=== PATIENT | male | born 2000 | race African-American/Black ===

== ENCOUNTER 2022-02-08 21:14 | Emergency (ER) | payer OTHER, SELFPAY ==
[2022-02-08 21:24] VITALS: BP 116/62; PULSE 80; RESP 20; TEMP 37.6; O2SAT 98; BMI 22.1
--- NOTE | 2022-02-08 22:46 | ED_ITS ---
HPI - General Adult General Chief complaint: Fever Stated complaint: sore throat Time Seen by Provider: 02/08/22 21:15 Source: patient Mode of arrival: Ambulatory History of Present Illness HPI narrative: 21-year-old male nonsmoker with noncontributory medical history presents with his significant other and a chief complaint of sore throat that seems to be worsening over the course of the day. He is had subjective fever and difficulty swallowing but denies any cough, chest pain or shortness of breath. He is had no nausea, vomiting or diarrhea. He states he went to a clinic earlier today and had a strep test that was negative, given his presentation they started him on antibiotics any ways. Related Data Allergies Allergy/AdvReac Type Severity Reaction Status Date / Time No Known Drug Allergies Allergy Verified 02/09/22 00:08 Review of Systems Review of Systems Narrative: GENERAL: Denies chills, fatigue, malaise, fever, sweats. HEENT: D see HPI. RESPIRATORY: Denies dyspnea, cough, wheezing, hemoptysis, sputum. CARDIOVASCULAR: Denies chest pain, palpitations, orthopnea, edema, GASTROINTESTINAL: Denies nausea, vomiting, abdominal pain, diarrhea, constipation, melena. : Denies dysuria, frequency, incontinence, hematuria, urinary retention. MUSCULOSKELETAL: denies weakness, joint pain, or bony pain SKIN: Denies rash, skin lesions, or other NEUROLOGIC: Denies weakness, headache, numbness, change in speech, confusion, seizures, incoordination. PSYCHIATRIC: No concerning psychosocial issues. 12 point review of systems is negative except for those stated above Patient History Social History Smoking Status: Current every day smoker Smoking Status: Current every day smoker tobacco type: vaping Substance Use Type: does not use Exam Narrative Exam Narrative: GENERAL: [21] year old patient appears stated age. Well-developed patient, in mild distress. HEAD: Atraumatic. Normocephalic. EYES: Pupils equal round and reactive. Extraocular motions intact. No scleral icterus. No injection or drainage. ENT: Nose without bleeding, purulent drainage. Post pharyngeal erythema with bilateral exudate, airway patent, no mass effect or uvular pointing to suggest peritonsillar abscess NECK: Trachea midline. Non tender CARDIOVASCULAR: Regular rate and rhythm without murmurs, gallops, or rubs. RESPIRATORY: Clear to auscultation. Breath sounds equal bilaterally. No wheezes, rales, or rhonchi. GASTROINTESTINAL: Abdomen soft, non-tender, nondistended. EXTREMITIES: No edema or joint tenderness. BACK: Nontender without deformity or crepitance. No flank tenderness. NEURO: AOx3. SKIN: No rash or erythema of visible areas Initial Vital Signs Initial Vital Signs: Vital Signs Temperature 99.7 F H 02/08/22 21:24 Pulse Rate 80 02/08/22 21:24 Respiratory Rate 20 02/08/22 21:24 Blood Pressure 116/62 02/08/22 21:24 Pulse Oximetry 98 02/08/22 21:24 Oxygen Delivery Method 02/08/22 21:24 Course Orders Ordered: ED Orders 02/08/22 21:33 Covid-19 + FLU A/B + RSV - PCR Stat 02/08/22 23:57 Monotest Stat 02/09/22 00:05 Throat Culture Stat Discontinued Medications Dexamethasone (Dexamethasone 10 Mg/Ml Vial) 10 mg IV NOW ONE Stop: 02/08/22 23:58 Last Admin: 02/09/22 00:14 Dose: 10 mg Documented By: SHAILESH Sodium Chloride (Normal Saline 0.9%) 1,000 mls @ 1,000 mls/hr IV BOLUS ONE Stop: 02/09/22 00:56 Last Admin: 02/09/22 00:13 Dose: 1,000 mls/hr Documented By: SHAILESH Ketorolac Tromethamine (Ketorolac 30 Mg/Ml Vial) 15 mg IV NOW ONE Stop: 02/08/22 23:58 Last Admin: 02/09/22 00:13 Dose: 15 mg Documented By: SHAILESH Vital Signs Vital signs: Vital Signs - 8 hr 02/08/22 21:24 Temperature 99.7 F H Pulse Rate 80 Respiratory Rate 20 Blood Pressure 116/62 Pulse Oximetry 98 Oxygen Delivery Method Room Air Medical Decision Making Lab Data Labs: Lab Results 02/08/22 02/09/22 Range/Units 21:33 00:39 SARS-CoV-2 (PCR) Negative (Negative) Monoscreen Positive H (Negative) Influenza A (RT-PCR) Flu a negative (NEGATIVE) Influenza B (RT-PCR) Flu b negative (NEGATIVE) RSV (PCR) Negative (Negative) Point of Care Testing Rapid Strep A Negative Point of care testing: Point of Care Testing Rapid Strep A Negative Discharge Plan Departure Patient Disposition: Home Clinical Impression: Mononucleosis Instructions: DI for Mononucleosis-Adult Activity Restrictions/Additional Instructions: *You have been diagnosed with [sore throat due to mononucleosis. As we discussed your strep test and swab for COVID, RSV and flu were all negative. There is no specific treatment for mono and it is a self-limiting disease that should be treated with rest, fluids, Tylenol and Motrin.] *What to do: *Please continue to take your regular medications as directed. *Please follow up with your primary care provider in 2-3 days, call for an appointment. Let them know you were seen in the Emergency Department and that we ask that you be seen in follow up. We will electronically transmit a record of today's note if your PCP is in our system *If you do not have a primary care provider please contact the [facility] Resource line at [phone]. They will ask some questions about your medical history and help get you set up with a doctor in the community. *Return to Emergency Department if you should have any new, worsening or concerning symptoms, such as [fever greater than 101 F, shaking chills, worsening pain, persistent vomiting or other bothersome symptoms]
[2022-02-08 22:47] LABS: Influenza A - CEPHEID Flu A NEGATIVE (NEGATIVE); Influenza B - CEPHEID Flu B NEGATIVE (NEGATIVE); Respiratory Syncytial Virus Negative (Negative)
[2022-02-08 22:51] LABS: COVID-19 CEPHEID 4-PLEX PCR Negative (Negative)
[2022-02-09] MEDS: SODIUM CHLORIDE 0.9% 1,000 ML 1000 ML IV (00:13)
[2022-02-09] MEDS: KETOROLAC 30 MG/ML VIAL 15 MG IV (00:13)
[2022-02-09] MEDS: DEXAMETHASONE 10 MG/ML VIAL IV (00:14)
[2022-02-09 00:50] LABS: Monotest Positive (Negative)
[2022-02-09 02:02] VITALS: BP 128/74; PULSE 80; RESP 16; TEMP 36.8; O2SAT 100
== END 2022-02-09 02:04 | disposition home or self-care (01) ==
PROVIDERS: Emergency Provider Emergency Medicine
DX: B27.90 Infectious mononucleosis, unspecified without complication (principal); Z20.822 Contact with and (suspected) exposure to COVID-19
CPT/HCPCS: 0241U; 36415; 86318; 87070; 87147; 87880; 96361; 96374; 96375; 99284; J1100; J1885

== ENCOUNTER 2022-02-10 16:00 | Emergency (ER) | payer OTHER, SELFPAY ==
[2022-02-10 16:09] VITALS: BP 106/65; PULSE 80; RESP 32; TEMP 37.6; O2SAT 98; BMI 22.8
--- NOTE | 2022-02-10 16:17 | DI.RAD.S_ITS ---
PROCEDURE: XR CHEST 2V INDICATIONS: Pain with inspiration TECHNIQUE: 2 views of the chest were acquired. COMPARISON: None. FINDINGS: Surgical changes and devices: None. Lungs and pleura: Lungs are clear. No pleural effusions or pneumothorax. Mediastinum: Mediastinal contours are normal. Heart size is normal. Bones and chest wall: No suspicious bony abnormalities. Soft tissues appear unremarkable. IMPRESSION: No acute cardiopulmonary disease. Dictated by: Ruthy Sow M.D. on 02/10/2022 at 16:34 Approved by: Ruthy Sow M.D. on 02/10/2022 at 16:34
[2022-02-10 17:24] LABS: Add Manual Diff / Slide Review NO; Basophils Absolute Auto 0 /uL (0-100); Basophils Percent Auto 0.4 % (0-2); Eosinophils Absolute Auto 0 /uL (0-450); Eosinophils Percent Auto 0.5 % (2-4); Hematocrit 43.7 % (41-53); Hemoglobin 14.8 g/dL (13.5-17.5); Lymphocytes Absolute Auto 3800 /uL (1100-4500); Lymphocytes Percent Auto 48.8 % (25-40); Mean Corpuscular Hemoglobin 29.5 PG (26-34); Mean Corpuscular Volume 86.8 fL (80-100); Monocytes Absolute Auto 800 /uL (0-900); Monocytes Percent Auto 9.8 % (3-14); Neutrophils Absolute Auto 3100 /uL (1500-7000); Neutrophils Percent Auto 40.5 % (50-75); Platelet Count 188 X10^3/uL (150-400); Red Blood Cell Count 5.03 X10^6/uL (4.5-5.9); Red Cell Distribution Width 13.7 % (11.6-14.8); White Blood Cell Count 7.7 X10^3/uL (4.5-11.0)
[2022-02-10 17:32] LABS: Creatine Kinase 97 U/L (55-170)
[2022-02-10 17:36] LABS: C-Reactive Protein Quant 2.3 mg/dL (<1.0)
[2022-02-10 17:45] LABS: Troponin I < 0.012 ng/mL (0.01-0.034)
[2022-02-10 18:03] LABS: Erythrocyte Sedimentation Rate 13 MM/HR (0-15)
[2022-02-10 18:11] LABS: Alanine Aminotransferase 55 IU/L (<50); Alkaline Phosphatase 130 U/L (38-126); Aspartate Aminotransferase 33 IU/L (17-59); BUN Creatinine Ratio 10.6 (6-22); Bilirubin Total 0.5 mg/dL (0.2-1.3); Blood Urea Nitrogen 10 mg/dL (9-20); Carbon Dioxide 28 mmol/L (22-32); Chloride 100 mmol/L (98-107); Estimated Glomerular Filt Rate > 60 mL/min (>60); Globulin 4.1 g/dL (1.7-4.1); Glucose 88 mg/dL (70-100); HEMOLYSIS < 15 (0-50); Potassium 4.1 mmol/L (3.4-5.1); Sodium 139 mmol/L (137-145); Total Protein 8.1 g/dL (6.3-8.2)
[2022-02-10 18:24] VITALS: BP 103/64; PULSE 83; RESP 14; O2SAT 99
--- NOTE | 2022-02-10 18:24 | ED_ITS ---
HPI - SOB/Dyspnea General Chief Complaint: Shortness of Breath/Dyspnea Stated Complaint: Dx [place] t-2, dyspnea Time Seen by Provider: 02/10/22 17:52 Source: patient Mode of arrival: Ambulatory History of Present Illness HPI Narrative: Patient is a healthy 21-year-old male who presents with newly diagnosed mono as of yesterday. He started having sore throat about 3 days ago. He continues to have sore throat and some shortness of breath. He has some mild left upper quadrant pain as well so he was worried and came in. Continues to have low- grade fevers last dose of Motrin was earlier today. No nausea or vomiting. Generally does not feel well. He is tolerating fluids but not as much. Related Data Allergies Allergy/AdvReac Type Severity Reaction Status Date / Time No Known Drug Allergies Allergy Verified 02/10/22 16:09 Review of Systems Review of Systems Narrative: GENERAL: Denies chills, fatigue, malaise, fever, sweats, travel HEENT: See HPI RESPIRATORY: Denies dyspnea, cough, wheezing, hemoptysis, sputum. CARDIOVASCULAR: Denies chest pain, palpitations, orthopnea, edema GASTROINTESTINAL: See HPI : Denies dysuria, frequency, incontinence, hematuria, urinary retention, flank pain. MUSCULOSKELETAL: Denies weakness, joint pain, or bony pain SKIN: No rash, no erythema, no pruritus NEUROLOGIC: Denies weakness, dizziness, headache, numbness, change in speech, confusion PSYCHIATRIC: No concerning psychosocial issues. 12 point review of systems is negative except for those stated above and HPI Patient History Social History Smoking Status: Current every day smoker Smoking Status: Current every day smoker tobacco type: vaping Substance Use Type: does not use Exam Initial Vital Signs Initial Vital Signs: Vital Signs Temperature 99.7 F H 02/10/22 16:09 Pulse Rate 80 02/10/22 16:09 Respiratory Rate 32 H 02/10/22 16:09 Blood Pressure 106/65 02/10/22 16:09 Pulse Oximetry 98 02/10/22 16:09 Oxygen Delivery Method 02/10/22 16:09 GENERAL: Alert 21 male appears to not feel well but awake and alert and nonacute HEENT: Head atraumatic,EOMI, pupils reactive, face symmetric, moist mucous membranes PHARYNX: Erythematous enlarged tonsils with mild exudate minimal uvula swelling airway patent managing own secretions CARDIOVASCULAR: Regular rate and rhythm without murmurs, rubs or gallops. RESPIRATORY: Breath sounds equal bilaterally, no wheezes rales or rhonchi. ABDOMEN: Soft no splenomegaly no right upper quadrant pain negative Junior's nondistended EXTREMITIES: Normal range of motion, no clubbing or edema. Neurovascularly intact NEUROLOGICAL: Alert and oriented x4.Normal gait and speech. SKIN: Warm, dry, no laceration, no petechiae, no rashes or lesions. Course Orders Ordered: ED Orders 02/10/22 16:17 XR chest 2V Stat 02/10/22 16:25 EKG-12 Lead Stat 02/10/22 16:50 CMP [Comprehensive Metabolic Panel] Stat CRP [C-Reactive Protein Quant] Stat Complete Blood Count AUTO DIFF Stat Erythrocyte Sedimentation Rate Stat Troponin & CK Cardiac Panel Stat Discontinued Medications Sodium Chloride (Normal Saline 0.9%) 1,000 mls @ 1,000 mls/hr IV BOLUS ONE Stop: 02/10/22 19:38 Last Infusion: 02/10/22 19:47 Dose: 0 mls/hr Documented By: Admin: 02/10/22 18:51 Dose: 1,000 mls/hr Documented By: AT Ketorolac Tromethamine (Ketorolac 30 Mg/Ml Vial) 15 mg IV NOW ONE Stop: 02/10/22 18:31 Last Admin: 02/10/22 18:52 Dose: 15 mg Documented By: AT Vital Signs Vital signs: Vital Signs - 8 hr 02/10/22 18:24 02/10/22 20:02 Pulse Rate 83 82 Respiratory Rate 14 18 Blood Pressure 103/64 102/66 Pulse Oximetry 99 99 Oxygen Delivery Method Room Air Room Air MDM - SOB/Dyspnea Lab Data Result diagrams: 02/10/22 16:50 02/10/22 16:50 Labs: Lab Results 02/10/22 02/10/22 02/10/22 Range/Units 16:50 16:50 16:50 WBC 7.7 (4.5-11.0) X10^3/uL RBC 5.03 (4.5-5.9) X10^6/uL Hgb 14.8 (13.5-17.5) g/dL Hct 43.7 (41-53) % MCV 86.8 (80-100) fL MCH 29.5 (26-34) PG MCHC 34.0 (30-36) % RDW 13.7 (11.6-14.8) % Plt Count 188 (150-400) X10^3/uL Neut % (Auto) 40.5 L (50-75) % Lymph % (Auto) 48.8 H (25-40) % [place] % (Auto) 9.8 (3-14) % Eos % (Auto) 0.5 L (2-4) % Baso % (Auto) 0.4 (0-2) % Neut # (Auto) 3100 (9664-8664) /uL Lymph # (Auto) 3800 (4420-9330) /uL [place] # (Auto) 800 (0-900) /uL Eos # (Auto) 0 (0-450) /uL Baso # (Auto) 0 (0-100) /uL ESR 13 (0-15) MM/HR Sodium (137-145) mmol/L Potassium (3.4-5.1) mmol/L Chloride (98-107) mmol/L Carbon Dioxide (22-32) mmol/L BUN (9-20) mg/dL Creatinine (0.66-1.25) mg/dL Estimated GFR (>60) mL/min BUN/Creatinine Ratio (6-22) Glucose (70-100) mg/dL Calcium (8.4-10.2) mg/dL Total Bilirubin (0.2-1.3) mg/dL AST (17-59) IU/L ALT (<50) IU/L Alkaline Phosphatase (38-126) U/L Total Creatine Kinase 97 (55-170) U/L CK-MB (CK-2) TNP CK-MB (CK-2) Rel Index TNP Troponin I < 0.012 (0.01-0.034) ng/mL C-Reactive Protein (<1.0) mg/dL Total Protein (6.3-8.2) g/dL Albumin (3.5-5.0) g/dL Globulin (1.7-4.1) g/dL Albumin/Globulin Ratio (1.0-2.8) 02/10/22 02/10/22 Range/Units 16:50 16:50 WBC (4.5-11.0) X10^3/uL RBC (4.5-5.9) X10^6/uL Hgb (13.5-17.5) g/dL Hct (41-53) % MCV (80-100) fL MCH (26-34) PG MCHC (30-36) % RDW (11.6-14.8) % Plt Count (150-400) X10^3/uL Neut % (Auto) (50-75) % Lymph % (Auto) (25-40) % [place] % (Auto) (3-14) % Eos % (Auto) (2-4) % Baso % (Auto) (0-2) % Neut # (Auto) (7368-3619) /uL Lymph # (Auto) (6108-1796) /uL [place] # (Auto) (0-900) /uL Eos # (Auto) (0-450) /uL Baso # (Auto) (0-100) /uL ESR (0-15) MM/HR Sodium 139 (137-145) mmol/L Potassium 4.1 (3.4-5.1) mmol/L Chloride 100 (98-107) mmol/L Carbon Dioxide 28 (22-32) mmol/L BUN 10 (9-20) mg/dL Creatinine 0.94 (0.66-1.25) mg/dL Estimated GFR > 60 (>60) mL/min BUN/Creatinine Ratio 10.6 (6-22) Glucose 88 (70-100) mg/dL Calcium 9.0 (8.4-10.2) mg/dL Total Bilirubin 0.5 (0.2-1.3) mg/dL AST 33 (17-59) IU/L ALT 55 H (<50) IU/L Alkaline Phosphatase 130 H (38-126) U/L Total Creatine Kinase (55-170) U/L CK-MB (CK-2) CK-MB (CK-2) Rel Index Troponin I (0.01-0.034) ng/mL C-Reactive Protein 2.3 H (<1.0) mg/dL Total Protein 8.1 (6.3-8.2) g/dL Albumin 4.0 (3.5-5.0) g/dL Globulin 4.1 (1.7-4.1) g/dL Albumin/Globulin Ratio 1.0 (1.0-2.8) MDM Narrative Medical decision making narrative: Patient diagnosed with mono yesterday, airway is patent. Bedside ultrasound done by myself does not show any fluid in abdomen. Blood work is overall shanelle ssuring. He is given fluids and Toradol overall feeling better. Recommend no exercise and rest, supportive care only. Discharge Plan Departure Patient Disposition: Home Clinical Impression: Mononucleosis Instructions: DI for Mononucleosis-Adult Activity Restrictions/Additional Instructions: *You have been diagnosed with mononucleosis *What to do: You need to be cleared by the base before you participate in physical activity. He will feel tired and fatigued for number of weeks. *Continue to take medications as directed Ibuprofen 600 mg every 6 hours if needed for [id number] pain Recommend avoiding Tylenol at this time because mono can cause elevation in your liver enzyme *Follow up with your primary care provider in 2-3 days or call [phone] *Return to ER if you should have increasing fatigue increasing left upper quadrant pain, inability to swallow or any new, worsening or concerning symptoms Referrals: ProviderJessica [Primary Care Provider] - Stand Alone Forms: Work Release Note Visit Report Forms: Patient Portal/API
[2022-02-10] MEDS: SODIUM CHLORIDE 0.9% 1,000 ML 1000 ML IV (18:51)
[2022-02-10] MEDS: KETOROLAC 30 MG/ML VIAL 15 MG IV (18:52)
[2022-02-10 20:02] VITALS: BP 102/66; PULSE 82; RESP 18; O2SAT 99
== END 2022-02-10 20:03 | disposition home or self-care (01) ==
PROVIDERS: Emergency Medicine; Emergency Provider Emergency Medicine
DX: B27.90 Infectious mononucleosis, unspecified without complication (principal); R07.89 Other chest pain
CPT/HCPCS: 36415; 71046; 80053; 82550; 84484; 85025; 85651; 86140; 93005; 96361; 96374; 99284; J1885

== ENCOUNTER 2022-03-25 20:01 | Emergency (ER) | payer OTHER, SELFPAY ==
[2022-03-25 20:08] VITALS: BP 111/64; PULSE 70; RESP 18; TEMP 36.8; O2SAT 99; BMI 23.2
--- NOTE | 2022-03-25 20:14 | DI.RAD.S_ITS ---
PROCEDURE: XR CHEST 1V INDICATIONS: chest pain TECHNIQUE: One view of the chest was acquired. COMPARISON: [facility], CR, XR CHEST 2V, 02/10/2022, 16:24. FINDINGS: Surgical changes and devices: None. Lungs and pleura: Lungs are clear. No pleural effusions or pneumothorax. Mediastinum: Mediastinal contours appear normal. Heart size is normal. Bones and chest wall: No suspicious bony lesions. Overlying soft tissues appear unremarkable. IMPRESSION: Normal for age, source of current chest pain symptoms is not seen. Dictated by: Dario Wilde M.D. on 03/25/2022 at 21:33 Approved by: Dario Wilde M.D. on 03/25/2022 at 21:34
--- NOTE | 2022-03-25 20:40 | ED.CHESTPAIN ---
HPI - Chest Pain General Chief Complaint: Chest Pain Stated Complaint: tightness and pain in Lt side of chest Time Seen by Provider: 03/25/22 20:21 Source: patient Mode of arrival: Ambulatory Limitations: no limitations History of Present Illness HPI narrative: 21-year-old male former smoker with noncontributory medical history presents with his significant other and a chief complaint of at least 24 hours of gradually worsening and persistent left-sided burning chest pain. He states the pain is worse if he moves, sits up or takes a deep breath. He denies any radiation. He denies any associated symptoms such as dizziness, weakness or lightheadedness. He is had no runny nose, sore throat or cough. He denies any nausea, vomiting diarrhea. He denies any trauma or injury, recent travel, history of blood clot or known cancer. He denies any exertional symptoms or exercise intolerance Related Data Previous Rx's Medication Instructions Recorded ketorolac 10 mg tablet 10 mg PO Q6H PRN pain #14 tabs 03/26/22 Allergies Allergy/AdvReac Type Severity Reaction Status Date / Time No Known Drug Allergies Allergy Verified 02/10/22 16:09 Review of Systems Review of Systems Narrative: GENERAL: Denies chills, fatigue, malaise, fever, sweats. HEENT: Denies sinus pain, ear pain, sore throat, difficulty swallowing, dizziness. RESPIRATORY: Denies dyspnea, cough, wheezing, hemoptysis, sputum. CARDIOVASCULAR: See HPI GASTROINTESTINAL: Denies nausea, vomiting, abdominal pain, diarrhea, constipation, melena. : Denies dysuria, frequency, incontinence, hematuria, urinary retention. MUSCULOSKELETAL: denies weakness, joint pain, or bony pain SKIN: Denies rash, skin lesions, or other NEUROLOGIC: Denies weakness, headache, numbness, change in speech, confusion, seizures, incoordination. PSYCHIATRIC: No concerning psychosocial issues. 12 point review of systems is negative except for those stated above Patient History Social History Smoking Status: Former smoker Smoking Status: Former smoker tobacco type: vaping Substance Use Type: does not use Exam Narrative Exam Narrative: GENERAL: [21] year old patient appears stated age. Well-developed patient, in no obvious distress, resting comfortably HEAD: Atraumatic. Normocephalic. EYES: Pupils equal round and reactive. Extraocular motions intact. No scleral icterus. No injection or drainage. ENT: Nose without bleeding, purulent drainage. Throat without erythema, tonsillar hypertrophy or exudate. Airway patent. NECK: Trachea midline. Non tender CARDIOVASCULAR: Regular rate and rhythm without murmurs, gallops, or rubs. RESPIRATORY: Clear to auscultation. Breath sounds equal bilaterally. No wheezes, rales, or rhonchi. GASTROINTESTINAL: Abdomen soft, non-tender, nondistended. EXTREMITIES: No edema or joint tenderness. BACK: Nontender without deformity or crepitance. No flank tenderness. NEURO: AOx3. SKIN: No rash or erythema of visible areas Initial Vital Signs Initial Vital Signs: Vital Signs Temperature 98.2 F 03/25/22 20:08 Pulse Rate 70 03/25/22 20:08 Respiratory Rate 18 03/25/22 20:08 Blood Pressure 111/64 03/25/22 20:08 Pulse Oximetry 99 03/25/22 20:08 Oxygen Delivery Method 03/25/22 20:08 Scores HEART Score Heart Score history: Slightly Suspicious Heart Score EKG: Non-Specific repolarization disturbance Heart Score Age: < 45 years old Heart Score risk factors: No known risk factors Heart Score troponin: < or = to normal limit Heart Score Total: 1 Course Orders Ordered: Discontinued Medications Ketorolac Tromethamine (Ketorolac 30 Mg/Ml Vial) 15 mg IV NOW ONE Stop: 03/26/22 01:26 Last Admin: 03/26/22 01:30 Dose: 15 mg Documented By: HNG Vital Signs Vital signs: Vital Signs - 8 hr 03/25/22 20:08 03/25/22 22:20 Temperature 98.2 F Pulse Rate 70 70 Respiratory Rate 18 Blood Pressure 111/64 109/70 Pulse Oximetry 99 100 Oxygen Delivery Method Room Air Room Air MDM - Chest Pain Lab Data Result diagrams: 03/25/22 20:34 03/25/22 20:34 Labs: Lab Results 03/25/22 03/25/22 03/25/22 Range/Units 20:15 20:34 20:34 WBC 6.1 (4.5-11.0) X10^3/uL RBC 5.04 (4.5-5.9) X10^6/uL Hgb 14.7 (13.5-17.5) g/dL Hct 43.9 (41-53) % MCV 87.2 (80-100) fL MCH 29.2 (26-34) PG MCHC 33.5 (30-36) % RDW 14.2 (11.6-14.8) % Plt Count 201 (150-400) X10^3/uL Neut % (Auto) 57.7 (50-75) % Lymph % (Auto) 34.4 (25-40) % [place] % (Auto) 5.5 (3-14) % Eos % (Auto) 2.0 (2-4) % Baso % (Auto) 0.4 (0-2) % Neut # (Auto) 3500 (5325-6167) /uL Lymph # (Auto) 2100 (4044-4341) /uL [place] # (Auto) 300 (0-900) /uL Eos # (Auto) 100 (0-450) /uL Baso # (Auto) 0 (0-100) /uL ESR (0-15) MM/HR PT 13.1 H (10.1-12.7) SECONDS INR 1.1 (0.9-1.3) APTT 30 (26-36) SECONDS D-Dimer (<500) ng/ml Sodium (137-145) mmol/L Potassium (3.4-5.1) mmol/L Chloride (98-107) mmol/L Carbon Dioxide (22-32) mmol/L BUN (9-20) mg/dL Creatinine (0.66-1.25) mg/dL Estimated GFR (>60) mL/min BUN/Creatinine Ratio (6-22) Glucose (70-100) mg/dL Calcium (8.4-10.2) mg/dL Magnesium (1.6-2.3) mg/dL Total Bilirubin (0.2-1.3) mg/dL AST (17-59) IU/L ALT (<50) IU/L Alkaline Phosphatase (38-126) U/L Total Creatine Kinase (55-170) U/L CK-MB (CK-2) CK-MB (CK-2) Rel Index Troponin I (0.01-0.034) ng/mL C-Reactive Protein (<1.0) mg/dL Total Protein (6.3-8.2) g/dL Albumin (3.5-5.0) g/dL Globulin (1.7-4.1) g/dL Albumin/Globulin Ratio (1.0-2.8) Lipase (23-300) U/L SARS-CoV-2 (PCR) Negative (Negative) 03/25/22 03/25/22 03/25/22 Range/Units 20:34 20:34 20:34 WBC (4.5-11.0) X10^3/uL RBC (4.5-5.9) X10^6/uL Hgb (13.5-17.5) g/dL Hct (41-53) % MCV (80-100) fL MCH (26-34) PG MCHC (30-36) % RDW (11.6-14.8) % Plt Count (150-400) X10^3/uL Neut % (Auto) (50-75) % Lymph % (Auto) (25-40) % [place] % (Auto) (3-14) % Eos % (Auto) (2-4) % Baso % (Auto) (0-2) % Neut # (Auto) (8822-7316) /uL Lymph # (Auto) (8472-6888) /uL [place] # (Auto) (0-900) /uL Eos # (Auto) (0-450) /uL Baso # (Auto) (0-100) /uL ESR 9 (0-15) MM/HR PT (10.1-12.7) SECONDS INR (0.9-1.3) APTT (26-36) SECONDS D-Dimer 242 (<500) ng/ml Sodium 139 (137-145) mmol/L Potassium 4.0 (3.4-5.1) mmol/L Chloride 102 (98-107) mmol/L Carbon Dioxide 28 (22-32) mmol/L BUN 16 (9-20) mg/dL Creatinine 0.93 (0.66-1.25) mg/dL Estimated GFR > 60 (>60) mL/min BUN/Creatinine Ratio 17.2 (6-22) Glucose 119 H (70-100) mg/dL Calcium 8.9 (8.4-10.2) mg/dL Magnesium 1.8 (1.6-2.3) mg/dL Total Bilirubin 0.6 (0.2-1.3) mg/dL AST 23 (17-59) IU/L ALT 23 (<50) IU/L Alkaline Phosphatase 92 (38-126) U/L Total Creatine Kinase 94 (55-170) U/L CK-MB (CK-2) TNP CK-MB (CK-2) Rel Index TNP Troponin I < 0.012 (0.01-0.034) ng/mL C-Reactive Protein (<1.0) mg/dL Total Protein 8.0 (6.3-8.2) g/dL Albumin 4.2 (3.5-5.0) g/dL Globulin 3.8 (1.7-4.1) g/dL Albumin/Globulin Ratio 1.1 (1.0-2.8) Lipase 146 (23-300) U/L SARS-CoV-2 (PCR) (Negative) 03/25/22 Range/Units 20:34 WBC (4.5-11.0) X10^3/uL RBC (4.5-5.9) X10^6/uL Hgb (13.5-17.5) g/dL Hct (41-53) % MCV (80-100) fL MCH (26-34) PG MCHC (30-36) % RDW (11.6-14.8) % Plt Count (150-400) X10^3/uL Neut % (Auto) (50-75) % Lymph % (Auto) (25-40) % [place] % (Auto) (3-14) % Eos % (Auto) (2-4) % Baso % (Auto) (0-2) % Neut # (Auto) (8255-9393) /uL Lymph # (Auto) (5411-5202) /uL [place] # (Auto) (0-900) /uL Eos # (Auto) (0-450) /uL Baso # (Auto) (0-100) /uL ESR (0-15) MM/HR PT (10.1-12.7) SECONDS INR (0.9-1.3) APTT (26-36) SECONDS D-Dimer (<500) ng/ml Sodium (137-145) mmol/L Potassium (3.4-5.1) mmol/L Chloride (98-107) mmol/L Carbon Dioxide (22-32) mmol/L BUN (9-20) mg/dL Creatinine (0.66-1.25) mg/dL Estimated GFR (>60) mL/min BUN/Creatinine Ratio (6-22) Glucose (70-100) mg/dL Calcium (8.4-10.2) mg/dL Magnesium (1.6-2.3) mg/dL Total Bilirubin (0.2-1.3) mg/dL AST (17-59) IU/L ALT (<50) IU/L Alkaline Phosphatase (38-126) U/L Total Creatine Kinase (55-170) U/L CK-MB (CK-2) CK-MB (CK-2) Rel Index Troponin I (0.01-0.034) ng/mL C-Reactive Protein < 0.5 (<1.0) mg/dL Total Protein (6.3-8.2) g/dL Albumin (3.5-5.0) g/dL Globulin (1.7-4.1) g/dL Albumin/Globulin Ratio (1.0-2.8) Lipase (23-300) U/L SARS-CoV-2 (PCR) (Negative) Imaging Data Chest x-ray: Radiologist's Impression: Close Chest X-Ray (Signed) Dario Wilde - 03/25/22 Chest X-Ray (Signed) Ruthy Sow - 02/10/22 Launch?[address] [address] XRay Report Signed Patient: Tono Howell MR#: [id number] : 2000 Acct:[id number] Age/Sex: 21 / M Date of Service: 03/25/22 Loc: ED Accession Number: [id number] ?? Procedure: XR chest 1V Ordering Provider: Warner Palafox D.O. PROCEDURE:? XR CHEST 1V ? INDICATIONS:? chest pain ? TECHNIQUE:? One view of the chest was acquired.? ? COMPARISON:? [facility], , XR CHEST 2V, 02/10/2022, 16:24. ? FINDINGS:? ? Surgical changes and devices:? None.? ? Lungs and pleura:? Lungs are clear.? No pleural effusions or pneumothorax.? ? Mediastinum:? Mediastinal contours appear normal.? Heart size is normal.? ? Bones and chest wall:? No suspicious bony lesions.? Overlying soft tissues appear unremarkable.? ? IMPRESSION:? Normal for age, source of current chest pain symptoms is not seen. ? ? Dictated by: Dario Wilde M.D. on 03/25/2022 at 21:33 ? ? Approved by: Dario Wilde M.D. on 03/25/2022 at 21:34 ? MDM Narrative Medical decision making narrative: [21-year-old former smoker with persistent sharp and stabbing left-sided chest pain] Multiple etiologies for patient's symptoms considered including, but not limited to: [Pleurisy, musculoskeletal, pericarditis, cardiac ischemia, pulmonary embolism versus other] Prior Charts reviewed: Including multiple ER visits earlier this year for pharyngitis and mononucleosis Labs reviewed and interpreted by myself: Labs are very reassuring, CBC without elevated white blood cell count, signs of anemia or thrombocytopenia. Electrolyte panel reassuring. Troponin negative. Pulmonary embolism considered as a possibility, however D-dimer well below the cutoff to pursue with CT angiogram. Inflammatory markers unremarkable, pericarditis maybe a possibility, however without classic symptoms there is no indication for advanced treatment involving colchicine Imaging reviewed: No acute process Patient's symptoms improved over duration of stay with above-stated therapies. Findings and discharge diagnosis discussed with patient/family followed by verbalization of understanding Return precautions discussed with patient/family whom verbalize understanding of diagnosis and plan Discharge Plan Departure Patient Disposition: Home Clinical Impression: Atypical chest pain Instructions: DI for Atypical Chest Pain Activity Restrictions/Additional Instructions: *You have been diagnosed with [left-sided chest pain. As we discussed your history and physical exam are reassuring and there is no indication of heart attack, blood clot, pneumonia, collapsed lung or other diagnosis that would require a specific or immediate intervention] *What to do: *Please continue to take your regular medications as directed. [ x] New medication prescriptions sent to your pharmacy: [ [facility]] [ ] New medication written as a paper prescription [ ] No new medications given *Please follow up with your primary care provider in 2-3 days, call for an appointment. Let them know you were seen in the Emergency Department and that we ask that you be seen in follow up. We will electronically transmit a record of today's note if your PCP is in our system *If you do not have a primary care provider please contact the [facility] Resource line at [phone]. They will ask some questions about your medical history and help get you set up with a doctor in the community. *Return to Emergency Department if you should have any new, worsening or concerning symptoms, such as [fever greater than 101 F, shaking chills, worsening pain, persistent vomiting or other bothersome symptoms] Prescriptions: New ketorolac 10 mg tablet 10 mg PO Q6H PRN (Reason: pain) Qty: 14 0RF Referrals: ProviderJessica [Primary Care Provider] - Stand Alone Forms: Patient Portal/API
[2022-03-25 20:47] LABS: Add Manual Diff / Slide Review NO; Basophils Absolute Auto 0 /uL (0-100); Basophils Percent Auto 0.4 % (0-2); Eosinophils Absolute Auto 100 /uL (0-450); Hematocrit 43.9 % (41-53); Hemoglobin 14.7 g/dL (13.5-17.5); Lymphocytes Absolute Auto 2100 /uL (1100-4500); Lymphocytes Percent Auto 34.4 % (25-40); Mean Corpuscular HGB Conc 33.5 % (30-36); Mean Corpuscular Hemoglobin 29.2 PG (26-34); Mean Corpuscular Volume 87.2 fL (80-100); Monocytes Absolute Auto 300 /uL (0-900); Monocytes Percent Auto 5.5 % (3-14); Neutrophils Absolute Auto 3500 /uL (1500-7000); Neutrophils Percent Auto 57.7 % (50-75); Platelet Count 201 X10^3/uL (150-400); Red Blood Cell Count 5.04 X10^6/uL (4.5-5.9); Red Cell Distribution Width 14.2 % (11.6-14.8); White Blood Cell Count 6.1 X10^3/uL (4.5-11.0)
[2022-03-25 20:51] LABS: INR 1.1 (0.9-1.3); Prothrombin Time 13.1 SECONDS (10.1-12.7)
[2022-03-25 20:54] LABS: PTT Partial Thromboplastin Tim 30 SECONDS (26-36)
[2022-03-25 20:57] LABS: COVID19 -Nasal RAPID Negative (Negative)
[2022-03-25 20:59] LABS: C-Reactive Protein Quant < 0.5 mg/dL (<1.0)
[2022-03-25 21:00] LABS: Alanine Aminotransferase 23 IU/L (<50); Albumin 4.2 g/dL (3.5-5.0); Albumin Globulin Ratio 1.1 (1.0-2.8); Alkaline Phosphatase 92 U/L (38-126); Aspartate Aminotransferase 23 IU/L (17-59); BUN Creatinine Ratio 17.2 (6-22); Bilirubin Total 0.6 mg/dL (0.2-1.3); Blood Urea Nitrogen 16 mg/dL (9-20); Calcium 8.9 mg/dL (8.4-10.2); Carbon Dioxide 28 mmol/L (22-32); Chloride 102 mmol/L (98-107); Creatine Kinase 94 U/L (55-170); Estimated Glomerular Filt Rate > 60 mL/min (>60); Globulin 3.8 g/dL (1.7-4.1); Glucose 119 mg/dL (70-100); HEMOLYSIS 25 (0-50); Lipase 146 U/L (23-300); Magnesium 1.8 mg/dL (1.6-2.3); Sodium 139 mmol/L (137-145)
[2022-03-25 21:02] LABS: D Dimer 242 ng/ml (<500)
[2022-03-25 21:11] LABS: Troponin I < 0.012 ng/mL (0.01-0.034)
[2022-03-25 21:18] LABS: Erythrocyte Sedimentation Rate 9 MM/HR (0-15)
[2022-03-25 22:20] VITALS: BP 109/70; PULSE 70; O2SAT 100
[2022-03-26] MEDS: KETOROLAC 30 MG/ML VIAL 15 MG IV (01:30)
[2022-03-26 01:43] VITALS: BP 119/56; PULSE 61; RESP 18; O2SAT 98
== END 2022-03-26 01:45 | disposition home or self-care (01) ==
PROVIDERS: Emergency Provider Emergency Medicine
DX: R07.89 Other chest pain (principal); Z20.822 Contact with and (suspected) exposure to COVID-19
CPT/HCPCS: 36415; 71045; 80053; 82550; 83690; 83735; 84484; 85025; 85379; 85610; 85651; 85730; 86140; 87635; 93005; 93010; 96374; 99284; C9803; J1885

== ENCOUNTER 2022-04-08 15:32 | Emergency (ER) | payer OTHER, SELFPAY ==
[2022-04-08 15:39] VITALS: BP 120/64; PULSE 73; RESP 19; TEMP 37.1; O2SAT 99; BMI 22.0
--- NOTE | 2022-04-08 15:43 | DI.RAD.S_ITS ---
PROCEDURE: XR CHEST 1V INDICATIONS: chest pain TECHNIQUE: One view of the chest was acquired. COMPARISON: [facility], CR, XR CHEST 1V, 03/25/2022, 20:52. FINDINGS: Surgical changes and devices: None. Lungs and pleura: Bilateral perihilar granulomas. No acute consolidations. No pleural effusions or pneumothorax. Mediastinum: Mediastinal contours appear normal. Heart size is normal. Bones and chest wall: No suspicious bony lesions. Overlying soft tissues appear unremarkable. IMPRESSION: 1. No acute cardiopulmonary disease. 2. Healed granulomatous disease. Dictated by: Suzie Lyon M.D. on 04/08/2022 at 15:48 Approved by: Suzie Lyon M.D. on 04/08/2022 at 15:49
[2022-04-08 16:07] LABS: Add Manual Diff / Slide Review NO; Basophils Absolute Auto 0 /uL (0-100); Basophils Percent Auto 0.3 % (0-2); Eosinophils Absolute Auto 100 /uL (0-450); Eosinophils Percent Auto 1.5 % (2-4); Hematocrit 41.8 % (41-53); Lymphocytes Absolute Auto 1800 /uL (1100-4500); Lymphocytes Percent Auto 38.3 % (25-40); Mean Corpuscular HGB Conc 33.6 % (30-36); Mean Corpuscular Volume 86.3 fL (80-100); Monocytes Absolute Auto 400 /uL (0-900); Monocytes Percent Auto 8.1 % (3-14); Neutrophils Absolute Auto 2400 /uL (1500-7000); Neutrophils Percent Auto 51.8 % (50-75); Platelet Count 171 X10^3/uL (150-400); Red Blood Cell Count 4.84 X10^6/uL (4.5-5.9); Red Cell Distribution Width 14.8 % (11.6-14.8); White Blood Cell Count 4.6 X10^3/uL (4.5-11.0)
[2022-04-08 16:13] LABS: INR 1.1 (0.9-1.3); Prothrombin Time 13.1 SECONDS (10.1-12.7)
[2022-04-08 16:15] LABS: PTT Partial Thromboplastin Tim 32 SECONDS (26-36)
[2022-04-08 16:17] LABS: Alanine Aminotransferase 54 IU/L (<50); Albumin 3.9 g/dL (3.5-5.0); Albumin Globulin Ratio 1.1 (1.0-2.8); Alkaline Phosphatase 80 U/L (38-126); Aspartate Aminotransferase 147 IU/L (17-59); BUN Creatinine Ratio 13.2 (6-22); Bilirubin Total 0.4 mg/dL (0.2-1.3); Blood Urea Nitrogen 12 mg/dL (9-20); Calcium 8.9 mg/dL (8.4-10.2); Carbon Dioxide 31 mmol/L (22-32); Chloride 104 mmol/L (98-107); Estimated Glomerular Filt Rate > 60 mL/min (>60); Globulin 3.5 g/dL (1.7-4.1); Glucose 91 mg/dL (70-100); HEMOLYSIS < 15 (0-50); Lipase 146 U/L (23-300); Magnesium 1.9 mg/dL (1.6-2.3); Potassium 4.1 mmol/L (3.4-5.1); Sodium 141 mmol/L (137-145); Total Protein 7.4 g/dL (6.3-8.2)
[2022-04-08 16:28] LABS: Troponin I < 0.012 ng/mL (0.01-0.034)
[2022-04-08 16:50] LABS: Creatine Kinase 13737 U/L (55-170)
[2022-04-08 16:55] LABS: Creatine Kinase MB 0.57 ng/mL (<2.37)
[2022-04-08 16:55] LABS: COVID19 -Nasal RAPID Negative (Negative)
--- NOTE | 2022-04-08 16:58 | ED_ITS ---
HPI - Chest Pain <Ratna Hernandez PA-C - Last Filed: 04/08/22 21:34> General Chief Complaint: Chest Pain Stated Complaint: chest pain, dizziness Time Seen by Provider: 04/08/22 15:47 Source: patient Mode of arrival: Ambulatory Limitations: no limitations History of Present Illness HPI narrative: 21-year-old male presents with concern for chest pain and dizziness with a sensation of palpitations. Patient states that since he was seen in the emergency department a few weeks ago for similar symptoms he has continued to have them intermittently up to a few times a day he feels like they are happening more often and lately he feels that they are happening specifically if he lies on his left side and seemed to happen sometimes when he is lying on his back but get better if he sitting up or walking around. He describes the sensation as like his heart is beating very hard and beating faster than usual and it is associated with pain which he states is in a line which he describes a long his anterior left pectoral muscle at the base. He is not had nausea or vomiting but states today before he came in he was so dizzy he was not sure he could walk to the car. He denies any frequent alcohol use or drug use with the exception of THC which she does use on a daily basis. He does state that he exercises a lot as he is in the noting that he did have to run 6 miles a few days ago. He states he exercises hard pretty much every day and this is not new for him. He does state he feels he has been more fatigued and tired the last few weeks and sleeping more than usual. Denies any change in bowel or bladder habits, weakness, any cough, congestion, sore throat, headaches, fevers, chills, ear pain or any other symptoms. Related Data Previous Rx's Medication Instructions Recorded ketorolac 10 mg tablet 10 mg PO Q6H PRN pain #14 tabs 03/26/22 Allergies Allergy/AdvReac Type Severity Reaction Status Date / Time No Known Drug Allergies Allergy Verified 02/10/22 16:09 Review of Systems <Ratna Hernandez PA-C - Last Filed: 04/08/22 21:34> Review of Systems Narrative: Unremarkable except as noted in the HPI Patient History <Ratna Hernandez PA-C - Last Filed: 04/08/22 21:34> Social History Smoking Status: Former smoker Smoking Status: Former smoker tobacco type: vaping Substance Use Type: does not use Exam <Ratna Hernandez PA-C - Last Filed: 04/08/22 21:34> Initial Vital Signs Initial Vital Signs: Vital Signs Temperature 98.7 F 04/08/22 15:39 Pulse Rate 73 04/08/22 15:39 Respiratory Rate 19 04/08/22 15:39 Blood Pressure 120/64 04/08/22 15:39 Pulse Oximetry 99 04/08/22 15:39 Oxygen Delivery Method 04/08/22 15:39 HENMT Head: normal to inspection Eyes General: Yes appearance normal, both eyes and all related structures Pupils: PERRL Chest Chest: normal inspection of the chest and tenderness (mild, Over sternum) Resp Effort & Inspection: normal respiratory effort Auscultation: clear to auscultation bilaterally Cardio Rate: regular rate Rhythm: regular rhythm Heart Sounds: S1 normal and S2 normal Pulses: radial pulses present Skin General: no rashes or lesions noted Neuro General: patient alert, patient awake and patient oriented x3 Extrem General: normal to inspection and full ROM <DO Tito Schaefer Last Filed: 04/09/22 00:17> Initial Vital Signs Initial Vital Signs: Vital Signs Temperature 98.7 F 04/08/22 15:39 Pulse Rate 73 04/08/22 15:39 Respiratory Rate 19 04/08/22 15:39 Blood Pressure 120/64 04/08/22 15:39 Pulse Oximetry 99 04/08/22 15:39 Oxygen Delivery Method 04/08/22 15:39 Scores <Ratna Hernandez PA-C - Last Filed: 04/08/22 21:34> HEART Score Heart Score history: Slightly Suspicious Heart Score EKG: Normal Heart Score Age: < 45 years old Heart Score risk factors: No known risk factors Heart Score troponin: < or = to normal limit Heart Score Total: 0 <Elder England DO - Last Filed: 04/09/22 00:17> HEART Score Heart Score Total: 0 Course <LAURIE Hall Last Filed: 04/08/22 21:34> Course Course Narrative: Did order a flu swab on this patient who had had a negative COVID 2 weeks ago when he was in the ED with similar symptoms. This returned negative but lab did run it as a quad viral screen and found that it was positive for COVID. Suspect that this may be related to his mildly elevated liver enzymes as well as his significantly elevated CK. In the absence of other findings. Still awaiting urine sent to lab for further analysis with concern for rhabdomyolysis. Anticipate admitting. Did talk to the hospitalist about this patient with additional labs ordered, care is handed off to attending physician Dr. England with repeat CK repeat pending. Decision to Admit Date: 04/08/22 Decision to Admit time: 19:00 Orders Ordered: ED Orders 04/08/22 15:43 XR chest 1V Stat 04/08/22 15:45 CRP [C-Reactive Protein Quant] Stat Complete Blood Count AUTO DIFF Stat Comprehensive Metabolic Panel Stat D Dimer Stat ESR [Erythrocyte Sedimentation Rate] Stat Lipase Stat Magnesium Stat Partial Thromboplastin Time Stat Prothrombin Time INR Stat Troponin & CK Cardiac Panel Stat 04/08/22 15:48 COVID19 -Nasal RAPID/Pre-Proc Stat 04/08/22 15:49 Lactate Dehydrogenase Stat 04/08/22 15:50 EKG-12 Lead Stat 04/08/22 17:25 Covid-19 + FLU A/B + RSV - PCR Stat 04/08/22 19:02 Urinalysis and Microscopic Stat urine tox [Urine Drug Screen, Rapid] Stat 04/08/22 20:44 CK [Creatine Kinase] Stat 04/08/22 23:12 BMP [Basic Metabolic Panel] Stat CK [Creatine Kinase] Stat Discontinued Medications Aspirin (Aspirin 81 Mg Chew Tab) 324 mg PO NOW ONE Stop: 04/08/22 15:44 Last Admin: 04/08/22 19:10 Dose: Not Given Documented By: RB Sodium Chloride (Normal Saline 0.9%) 1,000 mls @ 1,000 mls/hr IV BOLUS ONE Stop: 04/08/22 18:13 Last Infusion: 04/08/22 19:01 Dose: 0 mls/hr Documented By: Admin: 04/08/22 17:23 Dose: 1,000 mls/hr Documented By: RB Sodium Chloride (Normal Saline 0.9%) 1,000 mls @ 1,000 mls/hr IV BOLUS ONE Stop: 04/08/22 20:05 Last Infusion: 04/08/22 20:30 Dose: 0 mls/hr Documented By: Admin: 04/08/22 19:20 Dose: 1,000 mls/hr Documented By: CORA Lactated Ringer's (Lactated Ringers) 1,000 mls @ 1,000 mls/hr IV BOLUS ONE Stop: 04/08/22 22:54 Last Infusion: 04/08/22 23:00 Dose: 0 mls/hr Documented By: Admin: 04/08/22 22:00 Dose: 1,000 mls/hr Documented By: GUY Reevaluation(s) Reevaluation #1: Discussed with the patient on the discussion with the hospitalist and the plan to re-evaluate his CK levels with a new lab draw. Again discussed with him what rhabdomyolysis is and the potential for discharge versus admission depending on repeat/further labs. Time: 20:10 Consultations Consultation #1: Spoke with hospitalist Dr. Loving with Hospitalist Dr. Vizcaino and also present in discussion of this patient. They requested that we obtain a tox screen on his urine and also recheck the CK levels before they would consider admission for possible rhabdo. These labs are ordered and will consider admission versus discharge pending further evaluation. Time: 19:35 Vital Signs Vital signs: Vital Signs - 8 hr 04/08/22 17:16 04/08/22 22:58 Pulse Rate 69 70 Blood Pressure 102/61 124/74 Pulse Oximetry 100 100 Oxygen Delivery Method Room Air Room Air <Elder England, - Last Filed: 04/09/22 00:17> Orders Ordered: ED Orders 04/08/22 15:43 XR chest 1V Stat 04/08/22 15:45 CRP [C-Reactive Protein Quant] Stat Complete Blood Count AUTO DIFF Stat Comprehensive Metabolic Panel Stat D Dimer Stat ESR [Erythrocyte Sedimentation Rate] Stat Lipase Stat Magnesium Stat Partial Thromboplastin Time Stat Prothrombin Time INR Stat Troponin & CK Cardiac Panel Stat 04/08/22 15:48 COVID19 -Nasal RAPID/Pre-Proc Stat 04/08/22 15:49 Lactate Dehydrogenase Stat 04/08/22 15:50 EKG-12 Lead Stat 04/08/22 17:25 Covid-19 + FLU A/B + RSV - PCR Stat 04/08/22 19:02 Urinalysis and Microscopic Stat urine tox [Urine Drug Screen, Rapid] Stat 04/08/22 20:44 CK [Creatine Kinase] Stat 04/08/22 23:12 BMP [Basic Metabolic Panel] Stat CK [Creatine Kinase] Stat Discontinued Medications Aspirin (Aspirin 81 Mg Chew Tab) 324 mg PO NOW ONE Stop: 04/08/22 15:44 Last Admin: 04/08/22 19:10 Dose: Not Given Documented By: RB Sodium Chloride (Normal Saline 0.9%) 1,000 mls @ 1,000 mls/hr IV BOLUS ONE Stop: 04/08/22 18:13 Last Infusion: 04/08/22 19:01 Dose: 0 mls/hr Documented By: Admin: 04/08/22 17:23 Dose: 1,000 mls/hr Documented By: RB Sodium Chloride (Normal Saline 0.9%) 1,000 mls @ 1,000 mls/hr IV BOLUS ONE Stop: 04/08/22 20:05 Last Infusion: 04/08/22 20:30 Dose: 0 mls/hr Documented By: Admin: 04/08/22 19:20 Dose: 1,000 mls/hr Documented By: RB Lactated Ringer's (Lactated Ringers) 1,000 mls @ 1,000 mls/hr IV BOLUS ONE Stop: 04/08/22 22:54 Last Infusion: 04/08/22 23:00 Dose: 0 mls/hr Documented By: Admin: 04/08/22 22:00 Dose: 1,000 mls/hr Documented By: GC Vital Signs Vital signs: Vital Signs - 8 hr 04/08/22 17:16 04/08/22 22:58 Pulse Rate 69 70 Blood Pressure 102/61 124/74 Pulse Oximetry 100 100 Oxygen Delivery Method Room Air Room Air MDM - Chest Pain <Ratna Hernandez PA-C - Last Filed: 04/08/22 21:34> Differential Diagnosis Differential diagnosis: Likely atypical chest pain, costochondritis, chest pain and other (rhabdomyolosis, pericarditis) Medical Records Data Medical records narrative: I was provider for this patient during his emergency department stay, care was handed off to Dr. England, emergency department attending her made on shift in any. While caring for this patient I did consult Dr. England and Dr Cardenas about this patient as well as hospitalist. Lab Data Result diagrams: 04/08/22 15:45 04/08/22 23:12 Labs: Lab Results 04/08/22 04/08/22 04/08/22 Range/Units 15:45 15:45 15:45 WBC 4.6 (4.5-11.0) X10^3/uL RBC 4.84 (4.5-5.9) X10^6/uL Hgb 14.0 (13.5-17.5) g/dL Hct 41.8 (41-53) % MCV 86.3 (80-100) fL MCH 29.0 (26-34) PG MCHC 33.6 (30-36) % RDW 14.8 (11.6-14.8) % Plt Count 171 (150-400) X10^3/uL Neut % (Auto) 51.8 (50-75) % Lymph % (Auto) 38.3 (25-40) % [place] % (Auto) 8.1 (3-14) % Eos % (Auto) 1.5 L (2-4) % Baso % (Auto) 0.3 (0-2) % Neut # (Auto) 2400 (1402-7098) /uL Lymph # (Auto) 1800 (7407-7463) /uL [place] # (Auto) 400 (0-900) /uL Eos # (Auto) 100 (0-450) /uL Baso # (Auto) 0 (0-100) /uL ESR (0-15) MM/HR PT 13.1 H (10.1-12.7) SECONDS INR 1.1 (0.9-1.3) APTT 32 (26-36) SECONDS D-Dimer (<500) ng/ml Sodium 141 (137-145) mmol/L Potassium 4.1 (3.4-5.1) mmol/L Chloride 104 (98-107) mmol/L Carbon Dioxide 31 (22-32) mmol/L BUN 12 (9-20) mg/dL Creatinine 0.91 (0.66-1.25) mg/dL Estimated GFR > 60 (>60) mL/min BUN/Creatinine Ratio 13.2 (6-22) Glucose 91 (70-100) mg/dL Calcium 8.9 (8.4-10.2) mg/dL Magnesium 1.9 (1.6-2.3) mg/dL Total Bilirubin 0.4 (0.2-1.3) mg/dL AST 147 H (17-59) IU/L ALT 54 H (<50) IU/L Alkaline Phosphatase 80 (38-126) U/L Lactate Dehydrogenase (120-246) U/L Total Creatine Kinase 23054 H (55-170) U/L CK-MB (CK-2) 0.57 (<2.37) ng/mL CK-MB (CK-2) Rel Index 0.0 L (1.5-5.0) % Troponin I < 0.012 (0.01-0.034) ng/mL C-Reactive Protein (<1.0) mg/dL Total Protein 7.4 (6.3-8.2) g/dL Albumin 3.9 (3.5-5.0) g/dL Globulin 3.5 (1.7-4.1) g/dL Albumin/Globulin Ratio 1.1 (1.0-2.8) Lipase 146 (23-300) U/L Urine Color Urine Appearance Urine pH (4.5-8.0) Ur Specific [place] (1.000-1.035) Urine Protein (Negative) Urine Glucose (UA) (Negative) g/dL Urine Ketones (NEGATIVE) Urine Occult Blood (Negative) Urine Nitrate (Negative) Urine Bilirubin (NEGATIVE) Urine Urobilinogen (0.2) E.U./dL Ur Leukocyte Esterase (NEGATIVE) Urine RBC (0-5/HPF) Urine WBC (0-5/HPF) Ur Squamous Epith Cells (0-5/HPF) Urine Bacteria (None) Urine Mucus (Negative) Ur Culture Indicated? U Opiates 300ng/mL cut (Negative) Ur Oxycodone Screen (Negative) Urine Methadone Screen (Negative) Ur Barbiturates Screen (Negative) U Tricyclic Antidepress (Negative) Ur Phencyclidine Scrn (Negative) Ur Amphetamines Screen (Negative) U Methamphetamines Scrn (Negative) Ur MDMA Scrn (Ecstasy) (Negative) U Benzodiazepines Scrn (Negative) Urine Cocaine Screen (Negative) U Marijuana (THC) Screen (Negative) SARS-CoV-2 (PCR) (Negative) Influenza A (RT-PCR) Influenza B (RT-PCR) RSV (PCR) (Negative) 04/08/22 04/08/22 04/08/22 Range/Units 15:45 15:45 15:45 WBC (4.5-11.0) X10^3/uL RBC (4.5-5.9) X10^6/uL Hgb (13.5-17.5) g/dL Hct (41-53) % MCV (80-100) fL MCH (26-34) PG MCHC (30-36) % RDW (11.6-14.8) % Plt Count (150-400) X10^3/uL Neut % (Auto) (50-75) % Lymph % (Auto) (25-40) % [place] % (Auto) (3-14) % Eos % (Auto) (2-4) % Baso % (Auto) (0-2) % Neut # (Auto) (1451-1148) /uL Lymph # (Auto) (4967-4704) /uL [place] # (Auto) (0-900) /uL Eos # (Auto) (0-450) /uL Baso # (Auto) (0-100) /uL ESR 7 (0-15) MM/HR PT (10.1-12.7) SECONDS INR (0.9-1.3) APTT (26-36) SECONDS D-Dimer 472 (<500) ng/ml Sodium (137-145) mmol/L Potassium (3.4-5.1) mmol/L Chloride (98-107) mmol/L Carbon Dioxide (22-32) mmol/L BUN (9-20) mg/dL Creatinine (0.66-1.25) mg/dL Estimated GFR (>60) mL/min BUN/Creatinine Ratio (6-22) Glucose (70-100) mg/dL Calcium (8.4-10.2) mg/dL Magnesium (1.6-2.3) mg/dL Total Bilirubin (0.2-1.3) mg/dL AST (17-59) IU/L ALT (<50) IU/L Alkaline Phosphatase (38-126) U/L Lactate Dehydrogenase (120-246) U/L Total Creatine Kinase (55-170) U/L CK-MB (CK-2) (<2.37) ng/mL CK-MB (CK-2) Rel Index (1.5-5.0) % Troponin I (0.01-0.034) ng/mL C-Reactive Protein < 0.5 (<1.0) mg/dL Total Protein (6.3-8.2) g/dL Albumin (3.5-5.0) g/dL Globulin (1.7-4.1) g/dL Albumin/Globulin Ratio (1.0-2.8) Lipase (23-300) U/L Urine Color Urine Appearance Urine pH (4.5-8.0) Ur Specific [place] (1.000-1.035) Urine Protein (Negative) Urine Glucose (UA) (Negative) g/dL Urine Ketones (NEGATIVE) Urine Occult Blood (Negative) Urine Nitrate (Negative) Urine Bilirubin (NEGATIVE) Urine Urobilinogen (0.2) E.U./dL Ur Leukocyte Esterase (NEGATIVE) Urine RBC (0-5/HPF) Urine WBC (0-5/HPF) Ur Squamous Epith Cells (0-5/HPF) Urine Bacteria (None) Urine Mucus (Negative) Ur Culture Indicated? U Opiates 300ng/mL cut (Negative) Ur Oxycodone Screen (Negative) Urine Methadone Screen (Negative) Ur Barbiturates Screen (Negative) U Tricyclic Antidepress (Negative) Ur Phencyclidine Scrn (Negative) Ur Amphetamines Screen (Negative) U Methamphetamines Scrn (Negative) Ur MDMA Scrn (Ecstasy) (Negative) U Benzodiazepines Scrn (Negative) Urine Cocaine Screen (Negative) U Marijuana (THC) Screen (Negative) SARS-CoV-2 (PCR) (Negative) Influenza A (RT-PCR) Influenza B (RT-PCR) RSV (PCR) (Negative) 04/08/22 04/08/22 04/08/22 Range/Units 15:48 15:49 17:25 WBC (4.5-11.0) X10^3/uL RBC (4.5-5.9) X10^6/uL Hgb (13.5-17.5) g/dL Hct (41-53) % MCV (80-100) fL MCH (26-34) PG MCHC (30-36) % RDW (11.6-14.8) % Plt Count (150-400) X10^3/uL Neut % (Auto) (50-75) % Lymph % (Auto) (25-40) % [place] % (Auto) (3-14) % Eos % (Auto) (2-4) % Baso % (Auto) (0-2) % Neut # (Auto) (8197-7807) /uL Lymph # (Auto) (9255-6831) /uL [place] # (Auto) (0-900) /uL Eos # (Auto) (0-450) /uL Baso # (Auto) (0-100) /uL ESR (0-15) MM/HR PT (10.1-12.7) SECONDS INR (0.9-1.3) APTT (26-36) SECONDS D-Dimer (<500) ng/ml Sodium (137-145) mmol/L Potassium (3.4-5.1) mmol/L Chloride (98-107) mmol/L Carbon Dioxide (22-32) mmol/L BUN (9-20) mg/dL Creatinine (0.66-1.25) mg/dL Estimated GFR (>60) mL/min BUN/Creatinine Ratio (6-22) Glucose (70-100) mg/dL Calcium (8.4-10.2) mg/dL Magnesium (1.6-2.3) mg/dL Total Bilirubin (0.2-1.3) mg/dL AST (17-59) IU/L ALT (<50) IU/L Alkaline Phosphatase (38-126) U/L Lactate Dehydrogenase 455 H (120-246) U/L Total Creatine Kinase (55-170) U/L CK-MB (CK-2) (<2.37) ng/mL CK-MB (CK-2) Rel Index (1.5-5.0) % Troponin I (0.01-0.034) ng/mL C-Reactive Protein (<1.0) mg/dL Total Protein (6.3-8.2) g/dL Albumin (3.5-5.0) g/dL Globulin (1.7-4.1) g/dL Albumin/Globulin Ratio (1.0-2.8) Lipase (23-300) U/L Urine Color Urine Appearance Urine pH (4.5-8.0) Ur Specific [place] (1.000-1.035) Urine Protein (Negative) Urine Glucose (UA) (Negative) g/dL Urine Ketones (NEGATIVE) Urine Occult Blood (Negative) Urine Nitrate (Negative) Urine Bilirubin (NEGATIVE) Urine Urobilinogen (0.2) E.U./dL Ur Leukocyte Esterase (NEGATIVE) Urine RBC (0-5/HPF) Urine WBC (0-5/HPF) Ur Squamous Epith Cells (0-5/HPF) Urine Bacteria (None) Urine Mucus (Negative) Ur Culture Indicated? U Opiates 300ng/mL cut (Negative) Ur Oxycodone Screen (Negative) Urine Methadone Screen (Negative) Ur Barbiturates Screen (Negative) U Tricyclic Antidepress (Negative) Ur Phencyclidine Scrn (Negative) Ur Amphetamines Screen (Negative) U Methamphetamines Scrn (Negative) Ur MDMA Scrn (Ecstasy) (Negative) U Benzodiazepines Scrn (Negative) Urine Cocaine Screen (Negative) U Marijuana (THC) Screen (Negative) SARS-CoV-2 (PCR) Negative (Negative) Influenza A (RT-PCR) Cancelled Influenza B (RT-PCR) Cancelled RSV (PCR) (Negative) 04/08/22 04/08/22 04/08/22 Range/Units 17:25 19:02 19:02 WBC (4.5-11.0) X10^3/uL RBC (4.5-5.9) X10^6/uL Hgb (13.5-17.5) g/dL Hct (41-53) % MCV (80-100) fL MCH (26-34) PG MCHC (30-36) % RDW (11.6-14.8) % Plt Count (150-400) X10^3/uL Neut % (Auto) (50-75) % Lymph % (Auto) (25-40) % [place] % (Auto) (3-14) % Eos % (Auto) (2-4) % Baso % (Auto) (0-2) % Neut # (Auto) (9716-4792) /uL Lymph # (Auto) (3192-3076) /uL [place] # (Auto) (0-900) /uL Eos # (Auto) (0-450) /uL Baso # (Auto) (0-100) /uL ESR (0-15) MM/HR PT (10.1-12.7) SECONDS INR (0.9-1.3) APTT (26-36) SECONDS D-Dimer (<500) ng/ml Sodium (137-145) mmol/L Potassium (3.4-5.1) mmol/L Chloride (98-107) mmol/L Carbon Dioxide (22-32) mmol/L BUN (9-20) mg/dL Creatinine (0.66-1.25) mg/dL Estimated GFR (>60) mL/min BUN/Creatinine Ratio (6-22) Glucose (70-100) mg/dL Calcium (8.4-10.2) mg/dL Magnesium (1.6-2.3) mg/dL Total Bilirubin (0.2-1.3) mg/dL AST (17-59) IU/L ALT (<50) IU/L Alkaline Phosphatase (38-126) U/L Lactate Dehydrogenase (120-246) U/L Total Creatine Kinase (55-170) U/L CK-MB (CK-2) (<2.37) ng/mL CK-MB (CK-2) Rel Index (1.5-5.0) % Troponin I (0.01-0.034) ng/mL C-Reactive Protein (<1.0) mg/dL Total Protein (6.3-8.2) g/dL Albumin (3.5-5.0) g/dL Globulin (1.7-4.1) g/dL Albumin/Globulin Ratio (1.0-2.8) Lipase (23-300) U/L Urine Color Yellow Urine Appearance Clear Urine pH 6.0 (4.5-8.0) Ur Specific [place] >=1.030 H (1.000-1.035) Urine Protein Negative (Negative) Urine Glucose (UA) Negative (Negative) g/dL Urine Ketones Trace H (NEGATIVE) Urine Occult Blood Negative (Negative) Urine Nitrate Negative (Negative) Urine Bilirubin Negative (NEGATIVE) Urine Urobilinogen 0.2 (0.2) E.U./dL Ur Leukocyte Esterase Negative (NEGATIVE) Urine RBC None seen (0-5/HPF) Urine WBC 0-1/hpf (0-5/HPF) Ur Squamous Epith Cells 0-1 /hpf (0-5/HPF) Urine Bacteria None seen (None) Urine Mucus 2+ H (Negative) Ur Culture Indicated? Cult not indicated U Opiates 300ng/mL cut Negative (Negative) Ur Oxycodone Screen Negative (Negative) Urine Methadone Screen Negative (Negative) Ur Barbiturates Screen Negative (Negative) U Tricyclic Antidepress Negative (Negative) Ur Phencyclidine Scrn Negative (Negative) Ur Amphetamines Screen Negative (Negative) U Methamphetamines Scrn Negative (Negative) Ur MDMA Scrn (Ecstasy) Negative (Negative) U Benzodiazepines Scrn Negative (Negative) Urine Cocaine Screen Negative (Negative) U Marijuana (THC) Screen Positive H (Negative) SARS-CoV-2 (PCR) Positive H (Negative) Influenza A (RT-PCR) Flu a negative Influenza B (RT-PCR) Flu b negative RSV (PCR) Negative (Negative) 04/08/22 04/08/22 Range/Units 20:44 23:12 WBC (4.5-11.0) X10^3/uL RBC (4.5-5.9) X10^6/uL Hgb (13.5-17.5) g/dL Hct (41-53) % MCV (80-100) fL MCH (26-34) PG MCHC (30-36) % RDW (11.6-14.8) % Plt Count (150-400) X10^3/uL Neut % (Auto) (50-75) % Lymph % (Auto) (25-40) % [place] % (Auto) (3-14) % Eos % (Auto) (2-4) % Baso % (Auto) (0-2) % Neut # (Auto) (8386-7207) /uL Lymph # (Auto) (9908-8121) /uL [place] # (Auto) (0-900) /uL Eos # (Auto) (0-450) /uL Baso # (Auto) (0-100) /uL ESR (0-15) MM/HR PT (10.1-12.7) SECONDS INR (0.9-1.3) APTT (26-36) SECONDS D-Dimer (<500) ng/ml Sodium 138 (137-145) mmol/L Potassium 4.4 (3.4-5.1) mmol/L Chloride 106 (98-107) mmol/L Carbon Dioxide 29 (22-32) mmol/L BUN 11 (9-20) mg/dL Creatinine 0.78 (0.66-1.25) mg/dL Estimated GFR > 60 (>60) mL/min BUN/Creatinine Ratio 14.1 (6-22) Glucose 89 (70-100) mg/dL Calcium 8.1 L (8.4-10.2) mg/dL Magnesium (1.6-2.3) mg/dL Total Bilirubin (0.2-1.3) mg/dL AST (17-59) IU/L ALT (<50) IU/L Alkaline Phosphatase (38-126) U/L Lactate Dehydrogenase (120-246) U/L Total Creatine Kinase 71425 H 90557 H (55-170) U/L CK-MB (CK-2) (<2.37) ng/mL CK-MB (CK-2) Rel Index (1.5-5.0) % Troponin I (0.01-0.034) ng/mL C-Reactive Protein (<1.0) mg/dL Total Protein (6.3-8.2) g/dL Albumin (3.5-5.0) g/dL Globulin (1.7-4.1) g/dL Albumin/Globulin Ratio (1.0-2.8) Lipase (23-300) U/L Urine Color Urine Appearance Urine pH (4.5-8.0) Ur Specific [place] (1.000-1.035) Urine Protein (Negative) Urine Glucose (UA) (Negative) g/dL Urine Ketones (NEGATIVE) Urine Occult Blood (Negative) Urine Nitrate (Negative) Urine Bilirubin (NEGATIVE) Urine Urobilinogen (0.2) E.U./dL Ur Leukocyte Esterase (NEGATIVE) Urine RBC (0-5/HPF) Urine WBC (0-5/HPF) Ur Squamous Epith Cells (0-5/HPF) Urine Bacteria (None) Urine Mucus (Negative) Ur Culture Indicated? U Opiates 300ng/mL cut (Negative) Ur Oxycodone Screen (Negative) Urine Methadone Screen (Negative) Ur Barbiturates Screen (Negative) U Tricyclic Antidepress (Negative) Ur Phencyclidine Scrn (Negative) Ur Amphetamines Screen (Negative) U Methamphetamines Scrn (Negative) Ur MDMA Scrn (Ecstasy) (Negative) U Benzodiazepines Scrn (Negative) Urine Cocaine Screen (Negative) U Marijuana (THC) Screen (Negative) SARS-CoV-2 (PCR) (Negative) Influenza A (RT-PCR) Influenza B (RT-PCR) RSV (PCR) (Negative) Imaging Data Chest x-ray: Radiologist's Impression: [address] [address] XRay Report Signed Patient: Tono Howell MR#: [id number] : 2000 Acct:[id number] Age/Sex: 21 / M Date of Service: 04/08/22 Loc: ED Accession Number: [id number] ?? Procedure: XR chest 1V Ordering Provider: Valentina Cardenas D.O. PROCEDURE:? XR CHEST 1V ? INDICATIONS:? chest pain ? TECHNIQUE:? One view of the chest was acquired.? ? COMPARISON:? [facility], CR, XR CHEST 1V, 03/25/2022, 20:52. ? FINDINGS:? ? Surgical changes and devices:? None.? ? Lungs and pleura:? Bilateral perihilar granulomas.? No acute consolidations.? No pleural effusions or pneumothorax.? ? Mediastinum:? Mediastinal contours appear normal.? Heart size is normal.? ? Bones and chest wall:? No suspicious bony lesions.? Overlying soft tissues appear unremarkable.? ? IMPRESSION:? ? 1. No acute cardiopulmonary disease.? ? 2. Healed granulomatous disease.? ? ? Dictated by: Suzie Lyon M.D. on 04/08/2022 at 15:48 ? ? Approved by: Suzie Lyon M.D. on 04/08/2022 at 15:49?? ECG Data Interpretation: Heart rate 63 normal sinus rhythm without ST elevation T-wave inversions V1 QTC 392 MDM Narrative Medical decision making narrative: This is a generally well-appearing previously healthy 21-year-old male who is in the who presents with concern for persistent and now worsening symptoms including chest pain sensation of palpitations and dizziness. He was seen in the emergency department on March 25 and had an unremarkable cardiac workup including a negative D-dimer unremarkable CK and negative COVID. Today labs are also generally unremarkable with the notable exception of CK elevated to nearly 14,000. Has very slightly elevated liver enzymes. Lactate dehydrogenase is ordered as an add on and is found to be elevated to 455. He also ultimately does return positive for COVID with viral testing today. Urine is positive for ketones but no proteinuria or RBCs. Chest x-ray is unremarkable except for evidence of healed granulomatous disease. His history is also notable for frequent relatively intense exercise on a daily basis which is not new for him. He did admit to nearly daily marijuana use but denies other recreational drug use. Tox screen was obtained after consultation with hospitalist which came back negative with the exception of marijuana metabolites. A repeat CK was ordered for further evaluation given many of his labs are not consistent with rhabdomyolysis despite his initial quite elevated CK level. <Elder England, DO - Last Filed: 04/09/22 00:17> Medical Records Data Medical records narrative: I was provider for this patient during his emergency department stay, care was handed off to Dr. England, emergency department attending her made on shift in any. While caring for this patient I did consult Dr. England and Dr Cardenas about this patient as well as hospitalist. Lab Data Labs: Lab Results 04/08/22 04/08/22 04/08/22 Range/Units 15:45 15:45 15:45 WBC 4.6 (4.5-11.0) X10^3/uL RBC 4.84 (4.5-5.9) X10^6/uL Hgb 14.0 (13.5-17.5) g/dL Hct 41.8 (41-53) % MCV 86.3 (80-100) fL MCH 29.0 (26-34) PG MCHC 33.6 (30-36) % RDW 14.8 (11.6-14.8) % Plt Count 171 (150-400) X10^3/uL Neut % (Auto) 51.8 (50-75) % Lymph % (Auto) 38.3 (25-40) % [place] % (Auto) 8.1 (3-14) % Eos % (Auto) 1.5 L (2-4) % Baso % (Auto) 0.3 (0-2) % Neut # (Auto) 2400 (0000-5093) /uL Lymph # (Auto) 1800 (3267-8480) /uL [place] # (Auto) 400 (0-900) /uL Eos # (Auto) 100 (0-450) /uL Baso # (Auto) 0 (0-100) /uL ESR (0-15) MM/HR PT 13.1 H (10.1-12.7) SECONDS INR 1.1 (0.9-1.3) APTT 32 (26-36) SECONDS D-Dimer (<500) ng/ml Sodium 141 (137-145) mmol/L Potassium 4.1 (3.4-5.1) mmol/L Chloride 104 (98-107) mmol/L Carbon Dioxide 31 (22-32) mmol/L BUN 12 (9-20) mg/dL Creatinine 0.91 (0.66-1.25) mg/dL Estimated GFR > 60 (>60) mL/min BUN/Creatinine Ratio 13.2 (6-22) Glucose 91 (70-100) mg/dL Calcium 8.9 (8.4-10.2) mg/dL Magnesium 1.9 (1.6-2.3) mg/dL Total Bilirubin 0.4 (0.2-1.3) mg/dL AST 147 H (17-59) IU/L ALT 54 H (<50) IU/L Alkaline Phosphatase 80 (38-126) U/L Lactate Dehydrogenase (120-246) U/L Total Creatine Kinase 93851 H (55-170) U/L CK-MB (CK-2) 0.57 (<2.37) ng/mL CK-MB (CK-2) Rel Index 0.0 L (1.5-5.0) % Troponin I < 0.012 (0.01-0.034) ng/mL C-Reactive Protein (<1.0) mg/dL Total Protein 7.4 (6.3-8.2) g/dL Albumin 3.9 (3.5-5.0) g/dL Globulin 3.5 (1.7-4.1) g/dL Albumin/Globulin Ratio 1.1 (1.0-2.8) Lipase 146 (23-300) U/L Urine Color Urine Appearance Urine pH (4.5-8.0) Ur Specific [place] (1.000-1.035) Urine Protein (Negative) Urine Glucose (UA) (Negative) g/dL Urine Ketones (NEGATIVE) Urine Occult Blood (Negative) Urine Nitrate (Negative) Urine Bilirubin (NEGATIVE) Urine Urobilinogen (0.2) E.U./dL Ur Leukocyte Esterase (NEGATIVE) Urine RBC (0-5/HPF) Urine WBC (0-5/HPF) Ur Squamous Epith Cells (0-5/HPF) Urine Bacteria (None) Urine Mucus (Negative) Ur Culture Indicated? U Opiates 300ng/mL cut (Negative) Ur Oxycodone Screen (Negative) Urine Methadone Screen (Negative) Ur Barbiturates Screen (Negative) U Tricyclic Antidepress (Negative) Ur Phencyclidine Scrn (Negative) Ur Amphetamines Screen (Negative) U Methamphetamines Scrn (Negative) Ur MDMA Scrn (Ecstasy) (Negative) U Benzodiazepines Scrn (Negative) Urine Cocaine Screen (Negative) U Marijuana (THC) Screen (Negative) SARS-CoV-2 (PCR) (Negative) Influenza A (RT-PCR) Influenza B (RT-PCR) RSV (PCR) (Negative) 04/08/22 04/08/22 04/08/22 Range/Units 15:45 15:45 15:45 WBC (4.5-11.0) X10^3/uL RBC (4.5-5.9) X10^6/uL Hgb (13.5-17.5) g/dL Hct (41-53) % MCV (80-100) fL MCH (26-34) PG MCHC (30-36) % RDW (11.6-14.8) % Plt Count (150-400) X10^3/uL Neut % (Auto) (50-75) % Lymph % (Auto) (25-40) % [place] % (Auto) (3-14) % Eos % (Auto) (2-4) % Baso % (Auto) (0-2) % Neut # (Auto) (6436-7831) /uL Lymph # (Auto) (9297-1493) /uL [place] # (Auto) (0-900) /uL Eos # (Auto) (0-450) /uL Baso # (Auto) (0-100) /uL ESR 7 (0-15) MM/HR PT (10.1-12.7) SECONDS INR (0.9-1.3) APTT (26-36) SECONDS D-Dimer 472 (<500) ng/ml Sodium (137-145) mmol/L Potassium (3.4-5.1) mmol/L Chloride (98-107) mmol/L Carbon Dioxide (22-32) mmol/L BUN (9-20) mg/dL Creatinine (0.66-1.25) mg/dL Estimated GFR (>60) mL/min BUN/Creatinine Ratio (6-22) Glucose (70-100) mg/dL Calcium (8.4-10.2) mg/dL Magnesium (1.6-2.3) mg/dL Total Bilirubin (0.2-1.3) mg/dL AST (17-59) IU/L ALT (<50) IU/L Alkaline Phosphatase (38-126) U/L Lactate Dehydrogenase (120-246) U/L Total Creatine Kinase (55-170) U/L CK-MB (CK-2) (<2.37) ng/mL CK-MB (CK-2) Rel Index (1.5-5.0) % Troponin I (0.01-0.034) ng/mL C-Reactive Protein < 0.5 (<1.0) mg/dL Total Protein (6.3-8.2) g/dL Albumin (3.5-5.0) g/dL Globulin (1.7-4.1) g/dL Albumin/Globulin Ratio (1.0-2.8) Lipase (23-300) U/L Urine Color Urine Appearance Urine pH (4.5-8.0) Ur Specific [place] (1.000-1.035) Urine Protein (Negative) Urine Glucose (UA) (Negative) g/dL Urine Ketones (NEGATIVE) Urine Occult Blood (Negative) Urine Nitrate (Negative) Urine Bilirubin (NEGATIVE) Urine Urobilinogen (0.2) E.U./dL Ur Leukocyte Esterase (NEGATIVE) Urine RBC (0-5/HPF) Urine WBC (0-5/HPF) Ur Squamous Epith Cells (0-5/HPF) Urine Bacteria (None) Urine Mucus (Negative) Ur Culture Indicated? U Opiates 300ng/mL cut (Negative) Ur Oxycodone Screen (Negative) Urine Methadone Screen (Negative) Ur Barbiturates Screen (Negative) U Tricyclic Antidepress (Negative) Ur Phencyclidine Scrn (Negative) Ur Amphetamines Screen (Negative) U Methamphetamines Scrn (Negative) Ur MDMA Scrn (Ecstasy) (Negative) U Benzodiazepines Scrn (Negative) Urine Cocaine Screen (Negative) U Marijuana (THC) Screen (Negative) SARS-CoV-2 (PCR) (Negative) Influenza A (RT-PCR) Influenza B (RT-PCR) RSV (PCR) (Negative) 04/08/22 04/08/22 04/08/22 Range/Units 15:48 15:49 17:25 WBC (4.5-11.0) X10^3/uL RBC (4.5-5.9) X10^6/uL Hgb (13.5-17.5) g/dL Hct (41-53) % MCV (80-100) fL MCH (26-34) PG MCHC (30-36) % RDW (11.6-14.8) % Plt Count (150-400) X10^3/uL Neut % (Auto) (50-75) % Lymph % (Auto) (25-40) % [place] % (Auto) (3-14) % Eos % (Auto) (2-4) % Baso % (Auto) (0-2) % Neut # (Auto) (9332-2780) /uL Lymph # (Auto) (2801-7936) /uL [place] # (Auto) (0-900) /uL Eos # (Auto) (0-450) /uL Baso # (Auto) (0-100) /uL ESR (0-15) MM/HR PT (10.1-12.7) SECONDS INR (0.9-1.3) APTT (26-36) SECONDS D-Dimer (<500) ng/ml Sodium (137-145) mmol/L Potassium (3.4-5.1) mmol/L Chloride (98-107) mmol/L Carbon Dioxide (22-32) mmol/L BUN (9-20) mg/dL Creatinine (0.66-1.25) mg/dL Estimated GFR (>60) mL/min BUN/Creatinine Ratio (6-22) Glucose (70-100) mg/dL Calcium (8.4-10.2) mg/dL Magnesium (1.6-2.3) mg/dL Total Bilirubin (0.2-1.3) mg/dL AST (17-59) IU/L ALT (<50) IU/L Alkaline Phosphatase (38-126) U/L Lactate Dehydrogenase 455 H (120-246) U/L Total Creatine Kinase (55-170) U/L CK-MB (CK-2) (<2.37) ng/mL CK-MB (CK-2) Rel Index (1.5-5.0) % Troponin I (0.01-0.034) ng/mL C-Reactive Protein (<1.0) mg/dL Total Protein (6.3-8.2) g/dL Albumin (3.5-5.0) g/dL Globulin (1.7-4.1) g/dL Albumin/Globulin Ratio (1.0-2.8) Lipase (23-300) U/L Urine Color Urine Appearance Urine pH (4.5-8.0) Ur Specific [place] (1.000-1.035) Urine Protein (Negative) Urine Glucose (UA) (Negative) g/dL Urine Ketones (NEGATIVE) Urine Occult Blood (Negative) Urine Nitrate (Negative) Urine Bilirubin (NEGATIVE) Urine Urobilinogen (0.2) E.U./dL Ur Leukocyte Esterase (NEGATIVE) Urine RBC (0-5/HPF) Urine WBC (0-5/HPF) Ur Squamous Epith Cells (0-5/HPF) Urine Bacteria (None) Urine Mucus (Negative) Ur Culture Indicated? U Opiates 300ng/mL cut (Negative) Ur Oxycodone Screen (Negative) Urine Methadone Screen (Negative) Ur Barbiturates Screen (Negative) U Tricyclic Antidepress (Negative) Ur Phencyclidine Scrn (Negative) Ur Amphetamines Screen (Negative) U Methamphetamines Scrn (Negative) Ur MDMA Scrn (Ecstasy) (Negative) U Benzodiazepines Scrn (Negative) Urine Cocaine Screen (Negative) U Marijuana (THC) Screen (Negative) SARS-CoV-2 (PCR) Negative (Negative) Influenza A (RT-PCR) Cancelled Influenza B (RT-PCR) Cancelled RSV (PCR) (Negative) 04/08/22 04/08/22 04/08/22 Range/Units 17:25 19:02 19:02 WBC (4.5-11.0) X10^3/uL RBC (4.5-5.9) X10^6/uL Hgb (13.5-17.5) g/dL Hct (41-53) % MCV (80-100) fL MCH (26-34) PG MCHC (30-36) % RDW (11.6-14.8) % Plt Count (150-400) X10^3/uL Neut % (Auto) (50-75) % Lymph % (Auto) (25-40) % [place] % (Auto) (3-14) % Eos % (Auto) (2-4) % Baso % (Auto) (0-2) % Neut # (Auto) (0042-1146) /uL Lymph # (Auto) (8121-7795) /uL [place] # (Auto) (0-900) /uL Eos # (Auto) (0-450) /uL Baso # (Auto) (0-100) /uL ESR (0-15) MM/HR PT (10.1-12.7) SECONDS INR (0.9-1.3) APTT (26-36) SECONDS D-Dimer (<500) ng/ml Sodium (137-145) mmol/L Potassium (3.4-5.1) mmol/L Chloride (98-107) mmol/L Carbon Dioxide (22-32) mmol/L BUN (9-20) mg/dL Creatinine (0.66-1.25) mg/dL Estimated GFR (>60) mL/min BUN/Creatinine Ratio (6-22) Glucose (70-100) mg/dL Calcium (8.4-10.2) mg/dL Magnesium (1.6-2.3) mg/dL Total Bilirubin (0.2-1.3) mg/dL AST (17-59) IU/L ALT (<50) IU/L Alkaline Phosphatase (38-126) U/L Lactate Dehydrogenase (120-246) U/L Total Creatine Kinase (55-170) U/L CK-MB (CK-2) (<2.37) ng/mL CK-MB (CK-2) Rel Index (1.5-5.0) % Troponin I (0.01-0.034) ng/mL C-Reactive Protein (<1.0) mg/dL Total Protein (6.3-8.2) g/dL Albumin (3.5-5.0) g/dL Globulin (1.7-4.1) g/dL Albumin/Globulin Ratio (1.0-2.8) Lipase (23-300) U/L Urine Color Yellow Urine Appearance Clear Urine pH 6.0 (4.5-8.0) Ur Specific [place] >=1.030 H (1.000-1.035) Urine Protein Negative (Negative) Urine Glucose (UA) Negative (Negative) g/dL Urine Ketones Trace H (NEGATIVE) Urine Occult Blood Negative (Negative) Urine Nitrate Negative (Negative) Urine Bilirubin Negative (NEGATIVE) Urine Urobilinogen 0.2 (0.2) E.U./dL Ur Leukocyte Esterase Negative (NEGATIVE) Urine RBC None seen (0-5/HPF) Urine WBC 0-1/hpf (0-5/HPF) Ur Squamous Epith Cells 0-1 /hpf (0-5/HPF) Urine Bacteria None seen (None) Urine Mucus 2+ H (Negative) Ur Culture Indicated? Cult not indicated U Opiates 300ng/mL cut Negative (Negative) Ur Oxycodone Screen Negative (Negative) Urine Methadone Screen Negative (Negative) Ur Barbiturates Screen Negative (Negative) U Tricyclic Antidepress Negative (Negative) Ur Phencyclidine Scrn Negative (Negative) Ur Amphetamines Screen Negative (Negative) U Methamphetamines Scrn Negative (Negative) Ur MDMA Scrn (Ecstasy) Negative (Negative) U Benzodiazepines Scrn Negative (Negative) Urine Cocaine Screen Negative (Negative) U Marijuana (THC) Screen Positive H (Negative) SARS-CoV-2 (PCR) Positive H (Negative) Influenza A (RT-PCR) Flu a negative Influenza B (RT-PCR) Flu b negative RSV (PCR) Negative (Negative) 04/08/22 04/08/22 Range/Units 20:44 23:12 WBC (4.5-11.0) X10^3/uL RBC (4.5-5.9) X10^6/uL Hgb (13.5-17.5) g/dL Hct (41-53) % MCV (80-100) fL MCH (26-34) PG MCHC (30-36) % RDW (11.6-14.8) % Plt Count (150-400) X10^3/uL Neut % (Auto) (50-75) % Lymph % (Auto) (25-40) % [place] % (Auto) (3-14) % Eos % (Auto) (2-4) % Baso % (Auto) (0-2) % Neut # (Auto) (6497-9672) /uL Lymph # (Auto) (3130-6616) /uL [place] # (Auto) (0-900) /uL Eos # (Auto) (0-450) /uL Baso # (Auto) (0-100) /uL ESR (0-15) MM/HR PT (10.1-12.7) SECONDS INR (0.9-1.3) APTT (26-36) SECONDS D-Dimer (<500) ng/ml Sodium 138 (137-145) mmol/L Potassium 4.4 (3.4-5.1) mmol/L Chloride 106 (98-107) mmol/L Carbon Dioxide 29 (22-32) mmol/L BUN 11 (9-20) mg/dL Creatinine 0.78 (0.66-1.25) mg/dL Estimated GFR > 60 (>60) mL/min BUN/Creatinine Ratio 14.1 (6-22) Glucose 89 (70-100) mg/dL Calcium 8.1 L (8.4-10.2) mg/dL Magnesium (1.6-2.3) mg/dL Total Bilirubin (0.2-1.3) mg/dL AST (17-59) IU/L ALT (<50) IU/L Alkaline Phosphatase (38-126) U/L Lactate Dehydrogenase (120-246) U/L Total Creatine Kinase 25238 H 09888 H (55-170) U/L CK-MB (CK-2) (<2.37) ng/mL CK-MB (CK-2) Rel Index (1.5-5.0) % Troponin I (0.01-0.034) ng/mL C-Reactive Protein (<1.0) mg/dL Total Protein (6.3-8.2) g/dL Albumin (3.5-5.0) g/dL Globulin (1.7-4.1) g/dL Albumin/Globulin Ratio (1.0-2.8) Lipase (23-300) U/L Urine Color Urine Appearance Urine pH (4.5-8.0) Ur Specific [place] (1.000-1.035) Urine Protein (Negative) Urine Glucose (UA) (Negative) g/dL Urine Ketones (NEGATIVE) Urine Occult Blood (Negative) Urine Nitrate (Negative) Urine Bilirubin (NEGATIVE) Urine Urobilinogen (0.2) E.U./dL Ur Leukocyte Esterase (NEGATIVE) Urine RBC (0-5/HPF) Urine WBC (0-5/HPF) Ur Squamous Epith Cells (0-5/HPF) Urine Bacteria (None) Urine Mucus (Negative) Ur Culture Indicated? U Opiates 300ng/mL cut (Negative) Ur Oxycodone Screen (Negative) Urine Methadone Screen (Negative) Ur Barbiturates Screen (Negative) U Tricyclic Antidepress (Negative) Ur Phencyclidine Scrn (Negative) Ur Amphetamines Screen (Negative) U Methamphetamines Scrn (Negative) Ur MDMA Scrn (Ecstasy) (Negative) U Benzodiazepines Scrn (Negative) Urine Cocaine Screen (Negative) U Marijuana (THC) Screen (Negative) SARS-CoV-2 (PCR) (Negative) Influenza A (RT-PCR) Influenza B (RT-PCR) RSV (PCR) (Negative) [facility] Narrative Medical decision making narrative: This is a generally well-appearing previously healthy 21-year-old male who is in the who presents with concern for persistent and now worsening symptoms including chest pain sensation of palpitations and dizziness. He was seen in the emergency department on March 25 and had an unremarkable cardiac workup including a negative D-dimer unremarkable CK and negative COVID. Today labs are also generally unremarkable with the notable exception of CK elevated to nearly 14,000. Has very slightly elevated liver enzymes. Lactate dehydrogenase is ordered as an add on and is found to be elevated to 455. He also ultimately does return positive for COVID with viral testing today. Urine is positive for ketones but no proteinuria or RBCs. Chest x-ray is unremarkable except for evidence of healed granulomatous disease. His history is also notable for frequent relatively intense exercise on a daily basis which is not new for him. He did admit to nearly daily marijuana use but denies other recreational drug use. Tox screen was obtained after consultation with hospitalist which came back negative with the exception of marijuana metabolites. A repeat CK was ord ered for further evaluation given many of his labs are not consistent with rhabdomyolysis despite his initial quite elevated CK level. Dr england: I received turned over. Review patient's history and physical. Performed my own independent exam. His initial presenting complaints was palpitations. He has had no ectopy on the monitor and his EKG is unremarkable. I discuss this with him. I suspect that these are PVCs given his description of the symptoms but he does understand that unless he is being monitored when he has the symptoms we can not definitively give him a diagnosis. I advised that he contact his medical department when [place] to discuss the indications for a Holter monitor. We did discuss specific return precautions regarding this. He is also positive for COVID. He is no specific symptoms of COVID. I feel that this is most likely unrelated to his presentation today. He was informed of this diagnosis and instructed to follow all CDC guidelines and also instructed to follow-up with his medical department regarding this as well. He does have an elevation in his CK. This improved after 2 L of fluid. Unsure why this is elevated. He does not have any physical exam findings consistent with rhabdo. He does work out on a daily basis and 4 days ago had a fairly extensive workout but he states that he has no residual effects from that. His kidney function is unremarkable. I discussed options with him regarding this. We discussed being admitted to the hospital for IV fluids, receiving more fluids and rechecking his labs here in the ER, discharged home without further workup or even discharged home and returning to the emergency department for repeat lab check. We discussed the risks and benefits of all these. After this discussion the decision was made to administer more fluids and recheck his labs which we did. His kidney function remains unremarkable. His CK continues to decrease. Will discharge patient home with instructions to continue to increase his fluid intake. He was given specific return precautions regarding this as well. He expressed understanding and agreement with the above plan. Discharge Plan Departure Patient Disposition: Home Clinical Impression: Palpitations, COVID-19, Elevated CK Instructions: COVID-19 Activity Restrictions/Additional Instructions: I recommend that you contact your medical department when you [place] to discuss your symptoms today. I would recommend that you talk with them about the indications for a Holter monitor. You have no restrictions on your activities unless you develop symptoms while your exerting herself at which point I do recommend that you are cleared by your medical before participating in any physical activity. Follow all current CDC guidelines with regard to your positive COVID-19 status today. You do need follow-up with your medical department regarding this as well. I recommend that you increase your fluid intake. If you start having problems urinating, fevers or have muscle aches please return to the emergency department for further evaluation. Prescriptions: No Action ketorolac 10 mg tablet 10 mg PO Q6H PRN (Reason: pain) Qty: 14 0RF Referrals: ProviderJessica [Primary Care Provider] - Stand Alone Forms: Patient Portal/API
[2022-04-08 17:06] LABS: D Dimer 472 ng/ml (<500)
[2022-04-08 17:12] LABS: C-Reactive Protein Quant < 0.5 mg/dL (<1.0)
[2022-04-08 17:16] VITALS: BP 102/61; PULSE 69; O2SAT 100
[2022-04-08 17:19] LABS: Erythrocyte Sedimentation Rate 7 MM/HR (0-15)
[2022-04-08] MEDS: SODIUM CHLORIDE 0.9% 1,000 ML 1000 ML IV ×2 (17:23→19:20)
[2022-04-08 18:20] LABS: Lactate Dehydrogenase 455 U/L (120-246)
[2022-04-08 18:42] LABS: Influenza A - CEPHEID Flu A NEGATIVE (NEGATIVE); Influenza B - CEPHEID Flu B NEGATIVE (NEGATIVE); Respiratory Syncytial Virus Negative (Negative)
[2022-04-08 18:44] LABS: COVID-19 CEPHEID 4-PLEX PCR POSITIVE (Negative)
[2022-04-08 19:13] LABS: Appearance Urine UA CLEAR; Bilirubin Urine UA NEGATIVE (NEGATIVE); Color Urine UA YELLOW; Glucose Urine UA NEGATIVE (Negative); Ketones Urine UA TRACE (NEGATIVE); Leukocyte Esterase Urine UA NEGATIVE (NEGATIVE); Nitrite Urine UA NEGATIVE (Negative); Occult Blood Urine UA NEGATIVE (Negative); Protein Urine UA NEGATIVE (Negative); Specific Gravity Urine UA >=1.030 (1.000-1.035); Urobilinogen Urine UA 0.2 E.U./dL (0.2)
[2022-04-08 19:27] LABS: RBC Urine None Seen (0-5/HPF); WBC Urine 0-1/HPF (0-5/HPF)
[2022-04-08 19:28] LABS: Bacteria Urine None Seen; Culture Indicated Urine Cult Not Indicated; Mucus Urine 2+ (Negative); Squamous Epithelial Cell Urine 0-1 /HPF (0-5/HPF)
[2022-04-08 20:23] LABS: UR Morphine/Opiate cutoff 300 Negative (Negative); Ur Creatinine Normal (Normal); Ur Specific Gravity Normal (Normal); Urine Amphetamines Negative (Negative); Urine Barbiturates Negative (Negative); Urine Benzodiazepines Negative (Negative); Urine Cocaine Negative (Negative); Urine MDMA Negative (Negative); Urine Methadone Negative (Negative); Urine Methamphetamines Negative (Negative); Urine Oxycodone Negative (Negative); Urine Phencyclidine Negative (Negative); Urine Tetrahydrocannabinol Positive (Negative); Urine Tricyclic Antidepressant Negative (Negative); Urine pH Normal (Normal)
[2022-04-08 21:23] LABS: Creatine Kinase 10975 U/L (55-170)
[2022-04-08] MEDS: LACTATED RINGERS 1,000 ML 1000 ML IV (22:00)
[2022-04-08 22:58] VITALS: BP 124/74; PULSE 70; O2SAT 100
[2022-04-08 23:37] LABS: BUN Creatinine Ratio 14.1 (6-22); Blood Urea Nitrogen 11 mg/dL (9-20); Calcium 8.1 mg/dL (8.4-10.2); Carbon Dioxide 29 mmol/L (22-32); Chloride 106 mmol/L (98-107); Estimated Glomerular Filt Rate > 60 mL/min (>60); Glucose 89 mg/dL (70-100); HEMOLYSIS < 15 (0-50); Potassium 4.4 mmol/L (3.4-5.1); Sodium 138 mmol/L (137-145)
[2022-04-08 23:54] LABS: Creatine Kinase 10687 U/L (55-170)
[2022-04-09 00:23] VITALS: BP 118/70; PULSE 66; RESP 16; TEMP 36.3; O2SAT 99
== END 2022-04-09 00:20 | disposition home or self-care (01) ==
PROVIDERS: Emergency Medicine; Student in an Organized Health Care Education/Training Program; Emergency Provider Emergency Medicine
DX: U07.1 COVID-19 (principal); R00.2 Palpitations; R07.9 Chest pain, unspecified; R74.8 Abnormal levels of other serum enzymes
CPT/HCPCS: 0241U; 36415; 71045; 80048; 80053; 80305; 81001; 82550; 82553; 83615; 83690; 83735; 84484; 85025; 85379; 85610; 85651; 85730; 86140; 87635; 93005; 99284; C9803